=== PATIENT | female | born 1970 | race Caucasian/White ===

== ENCOUNTER 2021-08-04 15:21 | Emergency (ER) | payer SELFPAY ==
[~2021-08-04] VITALS: Ht 165.1 cm; Wt 94.5 kg
--- NOTE | 2021-08-04 15:57 | PHYS DOC ---
Past Medical History Past Medical History: Anxiety, High Cholesterol, Hypertension, Seizure General Adult EDM: Chief Complaint: SEIZURE HPI: HPI: Patient is a 50-year-old female who presents today via [facility] after having a seizure today at work. Per EMS patient had a seizure while sitting at her computer at work around 1445 today, EMS crew states the patient was a [place] Coma Scale initially of 9, when EMS arrived a few minutes after for transport they noted the patient to be a Thomas Coma Scale of 15. Patient told EMS that she has had seizures for quite some time, and that she does not take any medications for her seizures due to the cost of the medications. Patient also states that she was seen today by her primary care physician in [facility], she said that she had some medications that were added to her regime due to her anxiety disorder, she said they added Abilify and clonazepam but she states she has not taken any doses of that today. When I asked patient about her seizure medications she stated that her physician felt that her seizure disorder was not bad enough to warrant medications at this time. Accu- Chek in the field was 79. Patient does state that she drinks alcohol on an occasional basis and said that she had alcohol this weekend, but then she also said that she has 1-2 shots on a daily basis. Review of Systems: Review of Systems: Constitutional: Denies fever or chills. [] Eyes: Denies change in visual acuity. [] HENT: Denies nasal congestion or sore throat. [] Respiratory: Denies cough or shortness of breath. [] Cardiovascular: Denies chest pain or edema. [] GI: Denies abdominal pain, nausea, vomiting, bloody stools or diarrhea. [] : Denies dysuria. [] Musculoskeletal: Denies back pain or joint pain. [] Integument: Denies rash. [] Neurologic: Seizure activity Endocrine: Denies polyuria or polydipsia. [] Lymphatic: Denies swollen glands. [] Psychiatric: Denies depression or anxiety. [] Heart Score: C/O Chest Pain: No Risk Factors: Risk Factors: DM, Current or recent (<one month) smoker, HTN, HLP, family history of CAD, obesity. Risk Scores: Score 0 - 3: 2.5% MACE over next 6 weeks - Discharge Home Score 4 - 6: 20.3% MACE over next 6 weeks - Admit for Clinical Observation Score 7 - 10: 72.7% MACE over next 6 weeks - Early Invasive Strategies Physical Exam: PE: Constitutional: Well developed, well nourished, no acute distress, non-toxic appearance. [] HENT: Normocephalic, atraumatic, bilateral external ears normal, oropharynx moist, no oral exudates, nose normal. [] Eyes: PERRLA, EOMI, conjunctiva normal, no discharge. [] Neck: Normal range of motion, no tenderness, supple, no stridor. [] Cardiovascular:Heart rate regular rhythm, no murmur [] Lungs & Thorax: Bilateral breath sounds clear to auscultation [] Abdomen: Bowel sounds normal, soft, no tenderness, no masses, no pulsatile masses. [] Skin: Warm, dry, no erythema, no rash. [] Back: No tenderness, no CVA tenderness. [] Extremities: No tenderness, no cyanosis, no clubbing, ROM intact, no edema. [] Neurologic: Alert and oriented X 3, normal motor function, normal sensory function, no focal deficits noted. [] Psychologic: Affect normal, judgement normal, mood normal. [] Current Patient Data: Labs: Laboratory Tests Test 08/04/21 15:30 08/04/21 18:39 White Blood Count 6.0 x10^3/uL Red Blood Count 4.39 x10^6/uL Hemoglobin 13.2 g/dL Hematocrit 38.2 % Mean Corpuscular Volume 87 fL Mean Corpuscular Hemoglobin 30 pg Mean Corpuscular Hemoglobin Concent 35 g/dL Red Cell Distribution Width 12.9 % Platelet Count 233 x10^3/uL Neutrophils (%) (Auto) 44 % Lymphocytes (%) (Auto) 45 % Monocytes (%) (Auto) 8 % Eosinophils (%) (Auto) 3 % Basophils (%) (Auto) 1 % Neutrophils # (Auto) 2.7 x10^3/uL Lymphocytes # (Auto) 2.7 x10^3/uL Monocytes # (Auto) 0.5 x10^3/uL Eosinophils # (Auto) 0.2 x10^3/uL Basophils # (Auto) 0.1 x10^3/uL Sodium Level 138 mmol/L Potassium Level 3.4 mmol/L Chloride Level 102 mmol/L Carbon Dioxide Level 23 mmol/L Anion Gap 13 Blood Urea Nitrogen 13 mg/dL Creatinine 0.9 mg/dL Estimated GFR (Cockcroft-Gault) 66.0 BUN/Creatinine Ratio 14 Glucose Level 86 mg/dL Calcium Level 9.0 mg/dL Magnesium Level 2.0 mg/dL Total Bilirubin 1.2 mg/dL Aspartate Amino Transf (AST/SGOT) 21 U/L Alanine Aminotransferase (ALT/SGPT) 21 U/L Alkaline Phosphatase 114 U/L Total Protein 7.8 g/dL Albumin 3.7 g/dL Albumin/Globulin Ratio 0.9 Ethyl Alcohol Level < 10 mg/dL Urine Collection Type Unknown Urine Color (Auto) Light yellow Urine Turbidity Clear Urine pH (Auto) 6.0 Urine Specific [place] 1.012 Urine Protein (Auto) Negative mg/dL Urine Glucose (Auto)(UA) Negative mg/dL Urine Ketones (Auto) Negative mg/dL Urine Blood (Auto) Negative Urine Nitrite Negative Urine Bilirubin (Auto) Negative Urine Urobilinogen (Auto) Normal mg/dL Urine Leukocyte Esterase (Auto) Moderate Urine RBC 0 /HPF Urine WBC 5-10 /HPF Urine Squamous Epithelial Cells Many /LPF Urine Amorphous Sediment Present /HPF Urine Bacteria Few /HPF Urine Mucus Marked /LPF Urine Opiates Screen Neg Urine Methadone Screen Neg Urine Barbiturates Neg Urine Phencyclidine Screen Neg Urine Amphetamine/Methamphetamine Neg Urine Benzodiazepines Screen Neg Urine Cocaine Screen Neg Urine Cannabinoids Screen Neg Urine Ethyl Alcohol Neg Current Medications Medications (Trade) Dose Ordered Sig/Inez Route PRN Reason Start Time Stop Time Status Last Admin Dose Admin Acetaminophen/ Hydrocodone Bitart (Lortab 5/325) 1 tab 1X ONCE PO 08/04/21 20:30 08/04/21 20:31 DC 08/04/21 20:34 Vital Signs: Vital Signs Date Time Temp Pulse Resp B/P (MAP) Pulse Ox O2 Delivery O2 Flow Rate FiO2 08/04/21 15:30 98.3 77 17 132/81 (98) 100 Room Air 98.3 EKG: EKG: [] Radiology/Procedures: Radiology/Procedures: [] Course & Med Decision Making: Course & Med Decision Making Pertinent Labs and Imaging studies reviewed. (See chart for details) 5040 I did consult with neurology regarding this patient and they recommended that we check some basic laboratory results and recommend that the patient not drive for the next 6 months, and place the patient on Keppra for her seizure disorder and to follow-up with her primary care physician for further evaluation or and management of her seizures or to follow-up with neurology Dr. Linder for further evaluation and management of her seizure disorder. I will check some basic labs and do the fact that the patient did not hit her head or have any trauma to her head I will hold off on a CT scan at this time because the patient is neurologically intact. 1830 patient ambulated to the restroom with a steady gait, patient was given instructions on obtaining a urine sample, she verbalized understanding of this. Patient was instructed to return with her urine sample to room 8 where she is boarding at this time. 1999 as patient was getting ready to leave she is asking for some medication for her abdominal pain that started while she was here in the emergency department, she states this is a chronic issue and that her primary care physician is evaluating this, patient will be given 1 hydrocodone to go so that she can go home and follow-up with her primary care physician. Wen Disclaimer: Wen Disclaimer: This electronic medical record was generated, in whole or in part, using a voice recognition dictation system. Departure Departure Impression: Primary Impression: Seizure Additional Impression: Urinary tract infection Qualified Codes: N30.00 - Acute cystitis without hematuria Disposition: HOME / SELF CARE / HOMELESS Condition: STABLE Referrals: DARRYL PARK MD Patient Instructions: Seizure, Adult, Urinary Tract Infection Additional Instructions: Since you have had a seizure today, you cannot drive or operate heavy machinery for the next 6 months. This is a law that protects you and the other people on the road Keppra 500 mg 1 tablet twice daily this is for seizure prevention Follow-up with your primary care physician Dr. Miranda in [facility] or with Dr. Linder who is the neurologist here at [facility] and his information can be located on the referral section of these discharge instructions for further evaluation and management of your seizures. It was recommended by Dr. Linder that we start you on Keppra 500 mg twice daily and then have you be seen at an outpatient basis for further evaluation and management of your seizure disorder. Return to the emergency department should you have multiple seizures in a row, you have a change in mental status, or any other concern that you may have. Scripts Nitrofurantoin Monohyd/M-Cryst (MACROBID 100 MG CAPSULE) 100 Mg Capsule 1 CAP PO BID for 7 Days, #14 CAP 0 Refills Prov: ANA BHAKTA [employer]ER 08/04/21 Levetiracetam (KEPPRA) 500 Mg Tablet 1 TAB PO BID for 30 Days, #60 TAB 0 Refills Prov: ANA BHAKTA [employer]ER 08/04/21 ANA BHAKTA [employer] STAKER Aug 04, 2021 15:57
[2021-08-04 16:00] LABS: BASO # 0.1 x10^3/uL (0.0-0.2); BASO % 1 % (0-3); EOS # 0.2 x10^3/uL (0.0-0.7); EOS % 3 % (0-3); HEMATOCRIT 38.2 % (36.0-47.0); HEMOGLOBIN 13.2 g/dL (12.0-15.5); LYMPH # 2.7 x10^3/uL (1.0-4.8); LYMPH % 45 % (24-48); MEAN CORPUSCULAR HEMOGLOBIN 30 pg (25-35); MEAN CORPUSCULAR HGB CONC 35 g/dL (31-37); MEAN CORPUSCULAR VOLUME 87 fL (79-100); MONO # 0.5 x10^3/uL (0.0-1.1); MONO % 8 % (0-9); NEUT # 2.7 x10^3/uL (1.8-7.7); NEUT % 44 % (31-73); PLATELET COUNT 233 x10^3/uL (140-400); RED BLOOD COUNT 4.39 x10^6/uL (3.50-5.40); RED CELL DISTRIBUTION WIDTH 12.9 % (11.5-14.5)
[2021-08-04 16:21] LABS: CREATININE 0.9 mg/dL (0.6-1.0); POTASSIUM 3.4 mmol/L (3.5-5.1)
[2021-08-04 16:27] LABS: ALBUMIN 3.7 g/dL (3.4-5.0); ALBUMIN/GLOBULIN RATIO 0.9 (1.0-1.7); TOTAL BILIRUBIN 1.2 mg/dL (0.2-1.0); TOTAL PROTEIN 7.8 g/dL (6.4-8.2)
[2021-08-04 18:18] VITALS: BP 121/68
[2021-08-04 19:06] LABS: BARBITURATES NEG (NEG); BENZODIAZEPINES NEG (NEG); CANNABINOIDS NEG (NEG); COCAINE NEG (NEG); METHADONE NEG (NEG); OPIATES NEG (NEG); PHENCYCLIDINE NEG (NEG)
[2021-08-04 19:09] LABS: AMPHETAMINE/METHAMPHETAMINE NEG (NEG)
[2021-08-04 19:27] LABS: AMORPHOUS SEDIMENT,UR PRESENT /HPF; BACTERIA,URINE FEW /HPF (0-FEW); RBC,URINE 0 /HPF (0-2)
[2021-08-04] MEDS ORDERED: LEVE500T56 PO (19:30)
[2021-08-04] MEDS ORDERED: NITR100C62 PO (19:31)
[2021-08-04] MEDS ORDERED: HYDROcodone/APAP 5/325MG 1 TAB TABLET PO ONE (20:30)
--- NOTE | 2021-08-04 21:53 | EKG ---
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
== END 2021-08-04 20:40 | disposition home or self-care (01) ==
LOC: ER 15:21
DX: N30.00 Acute cystitis without hematuria (principal); R56.9 Unspecified convulsions; I10 Essential (primary) hypertension; E78.00 Pure hypercholesterolemia, unspecified
CPT/HCPCS: 36415; 80053; 80307; 81001; 83735; 85025; 87086; 93005; 99285; G0480; 99284